=== PATIENT | female | born 1950 | race Caucasian/White ===

== ENCOUNTER → 2017-03-16 | Day surgery (SDC) | payer MEDICARE ==
[~2017-03-16] VITALS: Ht 162.6 cm; Wt 81.1 kg
[~2017-03-16] MED LIST: CHOL400T PO; MULT1CAP33 PO; Sodium Chloride LOK Flush 10 mL Syringe IV PRN; fentaNYL-PF 50 mCg/mL 2 mL Inj IVPUSH PRN
[2017-03-16 10:53] VITALS: BP 128/83; PULSE 56; RESP 14; O2SAT 98
[2017-03-16] MEDS: 0.9% Sodium Chloride 1,000 ML IV SCH ×2 (11:56→12:08)
--- NOTE | 2017-03-16 12:10 | PCM.ENDEGD ---
EGD Date of Service: Mar 16, 2017 Physician Dereck Polanco MD Pre Procedure Diagnosis: Reflux Post Procedure Dx & Findings: Esophagitis gastritis fundic polyps Procedure Esophagogastroduodenoscopy PROCEDURE IN DETAIL: After proper sedation, Olympus video endoscope was inserted into patient's mouth and esophagus was successfully intubated. Scope introduced esophagus. Esophagus showed normal shiny whitish mucosa consistent with squamous cell component. Z line was at 40 cm from the incisors. Overall the Z line appeared intact however there was a spot that appeared to be reddish and irritated. Biopsy obtained. Scope further advanced to the stomach. In the antrum, there were isolated spots of redness edema consistent with patchy gastritis. Biopsies obtained. Also in the body and the fundus of the stomach, there are few small 1-2 mm fundic polyps. Sampling biopsies done.. Cardia fundus body antrum pylorus were all visualized. Retroflexion was done. Stomach was easily inflated and deflatable using air. Scope further advanced to the distal duodenum. Duodenum revealed normal villous structures with normal appearing folds without any mass ulcer erosion. Impression Esophagitis Gastritis Fundic polyps Recommendation Avoid biopsies. Presedation Assessment Risks and Benefits Informed consent was obtained from the patient after all risks and benefits including but not limited to drug reaction, infection, pain, bleeding, perforation, as well as alternatives were discussed. Patient monitoring Continuous pulse oximetry, cardiac monitoring, blood pressure monitoring, IV access, and oxygen at 2L per nasal cannula. Periprocedural Fentanyl: Fentanyl 175mcg Incrementally Midazolam: Midazolam 8mg Incrementally Complications There were no periprocedural complications identified. Post Procedure Plan Post Procedure Recommendations 1. Restrict activities today. 2. Resume normal activities in the morning. 3. Resume medications. 4. GERD behavioral modification: - Avoid fatty, acidic, spicy, large meals - Do not lie down after meals - Do not eat or drink anything for at least 2 1/2 hours before going to bed at night - Discontinue tobacco and alcohol - Decrease or avoid caffeine - Avoid chocolate and mints - Decrease weight - Avoid aspirin and non steroidal anti-inflammatory agents (NSAID) such as Aleve, Advil, Mobic, Naproxen, Ibuprofen, etc 5. Add proton pump inhibitor. Take 30 minutes before 1st meal of the day. 6. Patient informed of normal post procedure side effects as bloating, drowsiness, blood streaking in the stool 7. If gastric biopsy reveal H.pylori, continue with appropriate treatment 8. If small bowel biopsy reveals celiac, continue with appropriate treatment 9. Please don't hesitate to call me with any questions Dereck Polanco MD Mar 16, 2017 12:10
[2017-03-16 12:14] VITALS: BP 111/69; PULSE 60; RESP 16; O2SAT 92
[2017-03-16 12:23] VITALS: BP 114/71; PULSE 59; RESP 16; O2SAT 97
[2017-03-16 12:27] VITALS: BP 88/73; PULSE 65; RESP 16; O2SAT 97
--- NOTE | 2017-03-23 15:16 | PATH ---
SURGICAL PATHOLOGY Attending Physician:Dereck Polanco M.D. CASE STATUS: Signed Out PATIENT NAME: MARIBEL SUAREZ PID: [id number] : 1950 DATE COLLECTED:03/16/2017 19:48 SPECIMEN: 1: Gastric, Biopsy 2: Stomach, Polyp, Biopsy 3: Esophagus, Biopsy CLINICAL HISTORY: 1). GASTRIC BIOPSY AND RULE OUT H PYLORI 2). FUNDAL POLYP 3). DISTAL ESOPHAGUS BIOPSY FINAL DIAGNOSIS: 1. Stomach, Biopsy: Antral mucosa with reactive gastropathy. Negative for Helicobacter by immunohistochemistry. Negative for intestinal metaplasia. Negative for dysplasia and malignancy. 2. Stomach, Fundus Polyp, Biopsy: Body-type mucosa with mild chronic inflammation and foveolar hyperplasia. Negative for Helicobacter by immunohistochemistry. Negative for intestinal metaplasia. Negative for dysplasia and malignancy. 3. 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 Negative for dysplasia and malignancy. ICD10: K22.70 GROSS DESCRIPTION: The specimen is received in three formalin filled containers labeled with the patient's name. 1). The specimen is labeled "gastric" and consists of an consists of a 0.3 x 0.3 x 0.2 CM portion of tissue which is entirely submitted in cassette 1A. 2). The specimen is labeled "fundal polyp" and consists of a 0.1 x 0.1 x 0.1 CM portion of tissue which is entirely submitted in cassette 2A. 3). The specimen is labeled "distal esophagus" and consists of 2 portions of tissue which aggregate to 0.2 x 0.2 x 0.1 CM. The specimen is entirely submitted in cassette 3A. 03/16/2017DC MICRO DESCRIPTION: 1: An immunohistochemical stain was performed to evaluate for Helicobacter organisms and is negative. A control stain showed appropriate reactivity. * This test was developed and its performance characteristics determined by [facility]. It has not been cleared or approved by the [place]. Food and Drug Administration. The FDA has determined that such clearance or approval is not necessary. This test is used for clinical purposes. It should not be regarded as investigational or for research. ICD-9 CODES: CPT CODES: 1: 73755, 63387 2: 69236, 48127 3: 86495 Electronically Signed Out Linda Paulino MD [facility] [address], [place] [address] Technical component performed at [facility], [address], [place], [address]
== END | disposition home or self-care (01) ==
LOC: END 08:25
PROVIDERS: ATTEND Internal Medicine
DX: K22.70 Barrett's esophagus without dysplasia (principal); K31.7 Polyp of stomach and duodenum; K29.70 Gastritis, unspecified, without bleeding; K21.0 Gastro-esophageal reflux disease with esophagitis
CPT/HCPCS: 43239; G0500; J2250; J3010; J7030